=== PATIENT | male | born 1940 | race Caucasian/White ===

== ENCOUNTER 2017-04-30 08:46 | Outpatient (CLI) | payer BC ==
--- NOTE | 2017-04-30 11:27 | ULT ---
COMPLETE ABDOMEN ULTRASOUND: Date: 04/30/17 INDICATION: Elevated LFTs. FINDINGS: The aorta, liver, spleen, gallbladder, kidneys, pancreas, and common bile duct appear within normal l imits. No sonographic Ramirez's sign reported. Common bile duct measures 1.6 mm. Right kidney measures 10.4 x 4.8 x 5.1 cm. Left kidney measures 10.9 x 5.5 x 5.4 cm. Spleen measures 10.0 cm in length. IMPRESSION: No acute sonographic abnormality. POS: [facility]
== END 2017-04-30 08:47 | disposition home or self-care (01) ==
LOC: ULT 08:46
PROVIDERS: ATTEND Family Medicine
DX: R79.89 Other specified abnormal findings of blood chemistry (principal)
CPT/HCPCS: 76700

== ENCOUNTER 2017-07-20 12:01 | Outpatient (CLI) | payer BC ==
[2017-07-20] MEDS ORDERED: ISOVUE-370 76%-LOCM 1 ML ONE (13:24)
== END 2017-07-20 12:02 | disposition home or self-care (01) ==
LOC: BICCT 12:01
PROVIDERS: ATTEND Thoracic Surgery (Cardiothoracic Vascular Surgery)
DX: I71.4 Abdominal aortic aneurysm, without rupture (principal); Z98.890 Other specified postprocedural states
CPT/HCPCS: 36415; 74174; 82565

== ENCOUNTER 2022-01-23 08:55 | Emergency (ER) | payer BC | END 2022-01-23 11:34 | disposition home or self-care (01) | LOC: ERS 08:55 | DX: S62.336A Displaced fracture of neck of fifth metacarpal bone, right hand, initial encounter for closed fracture (principal); E03.9 Hypothyroidism, unspecified; E78.00 Pure hypercholesterolemia, unspecified; W19.XXXA Unspecified fall, initial encounter | CPT/HCPCS: 70450; 93005 ==

== ENCOUNTER 2023-03-11 19:13 | Emergency (ER) | payer BC ==
[2023-03-11 19:55] LABS: #Eosinphils 0.4 thou/uL (0.0-0.7); #Monocytes 0.4 thou/uL (0.11-0.59); #Neutrophils 5.1 thou/uL (1.40-6.50); %Basophils 0.4 % (0.0-1.0); %Eosinophils 6.1 % (0.0-10.0); %Lymphocytes 15.3 % (21.0-51.0); %Monocytes 5.8 % (0.0-10.0); %Neutrophils 71.8 % (42.0-75.0); Hematocrit 41.3 % (42.0-52.0); Hemoglobin 13.7 g/dL (14.0-18.0); Mean Corpuscular HGB CONC 33.2 g/dL (32.0-36.0); Mean Corpuscular Hemoglobin 31.1 pg (27.0-31.0); Mean Corpuscular Volume 93.7 fl (78.0-98.0); Mean Platelet Volume 9.9 fL (7.4-10.4); Platelet Count 221 10x3/uL (130-400); Red Blood Cell (RBC) Count 4.41 mill/uL (4.70-6.10); White Blood Cell (WBC) Count 7.1 10x3/uL (4.8-10.8)
[2023-03-11 20:33] LABS: Troponin I Less than 0.010 ng/mL (< 0.028)
[2023-03-11 20:39] LABS: ALT (SGPT) 23 U/L (8-55); AST (SGOT) 35 U/L (5-34); Albumin 4.7 g/dL (3.4-4.8); Alkaline Phosphatase 113 U/L (40-110); Anion Gap 14 mmol/L (10-20); BUN (Urea Nitrogen) 15 mg/dL (8.4-25.7); Bilirubin, Total 0.3 mg/dL (0.2-1.2); Calc. Creatinine Clearance 0 mL/min (70-130); Calcium 8.9 mg/dL (7.8-10.44); Carbon Dioxide 26 mmol/L (23-31); Chloride 103 mmol/L (98-107); Estimated GFR 60; Globulin 2.9 g/dL (2.4-3.5); Glucose 89 mg/dL (83-110); Lipase 66 U/L (8-78); Potassium 3.6 mmol/L (3.5-5.1); Protein, Total 7.6 g/dL (5.8-8.1); Sodium 139 mmol/L (136-145)
[2023-03-11 23:20] LABS: Troponin I Less than 0.010 ng/mL (< 0.028)
== END 2023-03-11 23:49 | disposition home or self-care (01) ==
LOC: ERS 19:13
DX: R07.9 Chest pain, unspecified (principal); E78.00 Pure hypercholesterolemia, unspecified; E03.9 Hypothyroidism, unspecified
CPT/HCPCS: 36415; 71045; 80053; 83690; 84484; 85025; 93005